=== PATIENT | female | born 1950 ===

== ENCOUNTER 2025-03-15 06:45 | Day surgery (SDC) | payer OTHER ==
[2025-03-08 13:39] VITALS: BP 150/80
[~2025-03-15] VITALS: Ht 165.1 cm; Wt 82.6 kg
[~2025-03-15 06:45] MED LIST: ADULT LOW DOSE81 M1; CALAN; COZAAR100 MG; GLIPIZIDE XL10 MG; LINSEED OIL1 ML MC; LIPITOR20 MG; METFORMIN HCL500 M3
[2025-03-15] MEDS ORDERED: CHLORHEXIDINE GLUCONATE 120 ML BOTTLE TOP ONE (11:15)
[2025-03-15] MEDS ORDERED: CEFAZOLIN SODIUM 1,000 MG VIAL IV ONE (11:15)
[2025-03-15] MEDS ORDERED: GENTAMICIN SULFATE 10 MG/ML (Pediatrico) IV ONE (11:15)
[2025-03-15] MEDS ORDERED: CEFAZOLIN SODIUM 1,000 MG VIAL IJ ONE (11:15)
[2025-03-15] MEDS ORDERED: MACROBID 100 M100 MG PO (11:27)
[2025-03-15] MEDS ORDERED: TRAM1TAB98 PO (11:28)
[2025-03-15] MEDS ORDERED: MORPHINE SULFATE 2 MG/ML CARTRIDGE IV ONE (13:20)
[2025-03-15] MEDS ORDERED: VASOPRESSIN 20 UNITS/ML VIAL IV ONE (15:15)
== END 2025-03-15 16:25 | disposition home or self-care (01) ==
LOC: CIR.AMB 06:45
PROVIDERS: ATTEND Obstetrics & Gynecology Gynecology
DX: N81.5 Vaginal enterocele (principal); N81.6 Rectocele; N81.10 Cystocele, unspecified